=== PATIENT | male | born 1950 | race Caucasian/White ===

== ENCOUNTER 2021-08-03 15:14 | Inpatient (IN) | payer MEDICARE, OTHER ==
[~2021-08-03] VITALS: Ht 180.3 cm; Wt 72.6 kg
[2021-08-03 15:55] LABS: HEMOGLOBIN 14.5 gm/dl (14.0-17.5); RED BLOOD COUNT 4.77 M/UL (4.20-5.50); WHITE BLOOD COUNT 7.4 K/UL (4.5-11.0)
[2021-08-03 16:29] LABS: BUN/CREATININE RATIO 16 (0-10)
--- NOTE | 2021-08-04 13:25 | NUR ---
PATIENT PLACED ON FALL PRECAUTIONS AT THIS TIME. PATIENT REFUSED TO WEAR YELLOW GOWN OR SOCKS AT THIS TIME. PATIENTS BED ALARM TURNED ON AT THIS TIME. FALL RISK BRACELET PALCED ON PATIENT. CALL LIGHT IS WITHIN PATIENTS REACH.
[2021-08-05 07:28] LABS: HEMOGLOBIN 12.9 gm/dl (14.0-17.5); RED BLOOD COUNT 4.5 M/UL (4.20-5.50); WHITE BLOOD COUNT 6.8 K/UL (4.5-11.0)
[2021-08-05 07:59] LABS: BUN/CREATININE RATIO 19 (0-10)
--- NOTE | 2021-08-05 14:44 | NUR ---
PATIENT HAS BECOME INCREASINGLY AGITATED. PROVIDER NOTIFIED AND PERSCRIBED DEPAKOTE 125MG TID. FIRST DOSE HAS BEEN ADMINISTERED AND NO NOTICABLE CHANGE IN PATIENT. HIS LEVEL OF AGITATION HAS INCREASED AND HE IS MORE AND MORE FREQUENTLY ASKING ABOUT HIS ESTRANGED PARTNER AND CURSING WANTING TO KNOW WHERE SHE IS AND CONSTANTLY QUESTIONING THE SITTER. WILL CONTINUE TO MONITOR.
--- NOTE | 2021-08-06 14:59 | NUR ---
PATIENT IS BECOMING AGITATED AND COMBATIVE TOWARDS STAFF. PATIENT ACTUALLY PUNCHED A WALL DUE TO FRUSTRATION RELATED TO NOT BEING ABLE TO SEE HIS AT THIS PRESENT TIME. PATIENT'S IS IN A SNF. NOTIFIED HOSPITALIST. NEW ORDER NOTED FOR [facility] PRN FOR EXTREME AGITATION.
[2021-08-07] MEDS ORDERED: QUETIAPINE FUMA25 MG PO (17:33)
[2021-08-07] MEDS ORDERED: ASPIRIN EC81 MG PO (17:33)
[2021-08-07] MEDS ORDERED: DIVALPROEX SOD125 MG PO (17:33)
[2021-08-07] MEDS ORDERED: SERTRALINE HCL50 MG PO (17:33)
[2021-08-07] MEDS ORDERED: ATORVASTATIN CA40 MG PO (17:33)
[2021-08-07] MEDS ORDERED: DONEPEZIL HCL5 MG PO (17:33)
[2021-08-07] MEDS ORDERED: LISINOPRIL10 MG PO (17:34)
[2021-08-12 06:25] LABS: HEMOGLOBIN 14.1 gm/dl (14.0-17.5); RED BLOOD COUNT 4.9 M/UL (4.20-5.50); WHITE BLOOD COUNT 7.5 K/UL (4.5-11.0)
[2021-08-12 06:50] LABS: BUN/CREATININE RATIO 21 (0-10)
--- NOTE | 2021-08-15 17:03 | NUR ---
[facility] CALLED, LEFT MESSAGE TO RETURN PHONE CALL IN ORDER TO GET FAX SENT AND START PROCESS OF EVALUATION
== END 2021-08-18 04:10 | disposition home or self-care (01) | DRG 884 ==
LOC: ER1 15:14 → MED SURG 4 08-04 08:14 → CDU 08-04 08:14 → MED SURG 4 08-04 09:32
PROVIDERS: Physician Assistant; ADMIT Internal Medicine
PROC: B24BZZZ Ultrasonography of Heart with Aorta (ICD-10-PCS; principal; 2021-08-04)
DX: F03.91 Unspecified dementia, unspecified severity, with behavioral disturbance (principal); J18.9 Pneumonia, unspecified organism; Z86.73 Personal history of transient ischemic attack (TIA), and cerebral infarction without residual deficits; Z20.822 Contact with and (suspected) exposure to COVID-19; F32.A Depression, unspecified; G47.00 Insomnia, unspecified; I10 Essential (primary) hypertension; L40.9 Psoriasis, unspecified; G89.29 Other chronic pain; M54.9 Dorsalgia, unspecified; E78.5 Hyperlipidemia, unspecified; F17.210 Nicotine dependence, cigarettes, uncomplicated; R45.1 Restlessness and agitation; Z91.14 Patient's other noncompliance with medication regimen; Z79.82 Long term (current) use of aspirin
CPT/HCPCS: ECHO; 36415; 70450; 70551; 71045; 71046; 80048; 80053; 80061; 81001; 82140; 82550; 82553; 82607; 82746; 83874; 84484; 85025; 85027; 87040; 93005; 93306; 96374; 96375; 97161; 97166; 99285; G0480; J0456; J0696; J2060; J7030; Q9967; U0002